=== PATIENT | male | born 2005 | race Caucasian/White ===

== ENCOUNTER 2025-03-21 11:55 | Observation (INO) | payer OTHER | END 2025-03-21 20:55 | disposition home or self-care (01) | LOC: ED 11:55 → MS 11:56 | PROVIDERS: ADMIT Surgery | PROC: 0H9JX0Z Drainage of Left Upper Leg Skin with Drainage Device, External Approach (ICD-10-PCS; principal; 2025-03-21) | DX: S70.12XA Contusion of left thigh, initial encounter (principal); W10.8XXA Fall (on) (from) other stairs and steps, initial encounter ==